=== PATIENT | female | born 1945 | race African-American/Black ===

== ENCOUNTER 2018-11-30 13:50 | Emergency (ER) | payer MEDICARE, MEDICAID ==
[~2018-11-30] VITALS: Ht 162.6 cm; Wt 99.8 kg
[~2018-11-30 13:50] MED LIST: ASPIR 8181 MG ORAL; LANTUS SOL100 UNIT/1 SUBQ; METFORMIN HCL1000 M1 ORAL; NOVOLIN R100 UNIT/1 SUBQ; SIMVASTATIN20 MG ORAL; blood pressure pill PO
[2018-11-30] MEDS ORDERED: BENAZEPRIL HCL40 MG ORAL (14:12)
[2018-11-30] MEDS ORDERED: MIRTAZAPINE15 M3 ORAL (14:12)
[2018-11-30] MEDS ORDERED: ATORVASTATIN CA40 MG ORAL (14:12)
[2018-11-30] MEDS ORDERED: OMEPRAZOLE20 M2 ORAL (14:12)
[2018-11-30] MEDS ORDERED: LEXAPRO20 MG ORAL (14:12)
[2018-11-30] MEDS ORDERED: AMLODIPINE BESY10 MG ORAL (14:12)
[2018-11-30] MEDS ORDERED: METOPROLOL TART25 MG ORAL (14:12)
[2018-11-30] MEDS ORDERED: TRAMADOL HCL50 MG ORAL (14:15)
[2018-11-30] MEDS ORDERED: FUROSEMIDE20 M1 ORAL (14:15)
[2018-11-30] MEDS ORDERED: GABAPENTIN300 MG ORAL (14:15)
[2018-11-30] MEDS ORDERED: NAPROXEN375 M2 ORAL (14:15)
[2018-11-30] MEDS ORDERED: MELOXICAM15 MG PO (14:15)
[2018-11-30] MEDS ORDERED: POTASSIUM CHLO10 MEQ ORAL (14:16)
--- NOTE | 2018-11-30 14:18 | NUR ---
ED Nurse Note: Pt came in from home c/o worsened right sided neck pain aching and joint pain; reports no recent injury; patient had this pain for years; MRI exam done. Pain 10/10 ugo. AOx4, VSS. Will cont to monitor.
--- NOTE | 2018-11-30 14:33 | Emergency Room Report ---
History of Present Illness General Chief Complaint: Neck Pain Source: Patient Present Illness HPI 73 YO female presents to the ED c/o 07/26 in severity right sided neck pain that radiates forward and across her chest x 3 days. pt. reports having issue of pain x multiple years and has had 2 MRI's performed which were both negative. pt. reports was seeing a pain management doctor but recently switched to [facility]. pt. reports hx of breast CA w. left mastectomy, DM, HTN and Neuropathy. denies paresthesias in the UE's. Pt. denies recent trauma or fall. Denies fevers, chills, SRINIVASAN or recent spinal procedure. Pt. denies night sweats or significant changes in weight. pt. reports being worked up for thyroid issues already. pt. is primarily here due to uncontrolled pain. Denies palpitations or upward radiation of her symptoms. Allergies: Coded Allergies: No Known Allergies (Unverified , 12/06/14) Patient History Past Medical History: see triage record Past Surgical History: none Pertinent Family History: none Now: No Reviewed Nursing Documentation: PMH: Agreed; PSxH: Agreed Nursing Documentation-PMH Past Medical History: No History, Except For Hx Cardiac Problems: Yes - arthritis Hx Hypertension: Yes Hx Pacemaker: No Hx Asthma: No Hx COPD: No Hx Diabetes: Yes Hx Cancer: No Hx Gastrointestinal Problems: Yes Hx Dialysis: No History Of Psychiatric Problem: Yes - depression Hx Neurological Problems: No Hx Cerebrovascular Accident: No Hx Seizures: No Review of Systems All Other Systems: negative except mentioned in HPI Physical Exam Vital Signs Date Time Temp Pulse Resp B/P (MAP) Pulse Ox O2 Delivery O2 Flow Rate FiO2 11/30/18 13:58 98.8 87 14 134/69 94 Room Air Sp02 EP Interpretation: reviewed, normal General Appearance: no apparent distress, alert, GCS 15, non-toxic Head: normocephalic, atraumatic Eyes: bilateral eye normal inspection, bilateral eye PERRL ENT: hearing grossly normal, normal voice Neck: full range of motion, tender lateral - right lateral, no swelling , erythema or LAD Respiratory: chest non-tender, lungs clear, normal breath sounds, speaking full sentences Cardiovascular #1: regular rate, rhythm, normal capillary refill Cardiovascular #2: 2+ radial (L), 2+ femoral (R) Musculoskeletal: back normal, gait/station normal, normal range of motion, tender - TTP to the right side of the neck and trapezius with some just below the collar bone. no bony ttp, no obvious deformity, no midline spinal pain. Neurologic: alert, oriented x3, responsive, motor strength/tone normal, sensory intact, speech normal, grossly normal Psychiatric: judgement/insight normal Skin: normal color, no rash, warm/dry, well hydrated Lymphatic: no adenopathy Medical Decision Making PA Attestation Dr. Clark is my supervising physician whom pt. management has been discussed with. Diagnostic Impression: Primary Impression: Chronic neck pain Additional Impressions: Neuropathy Hx of breast cancer ER Course 73 YO female presents to the ED c/o 07/26 in severity right sided neck pain that radiates forward and across her chest x 3 days. pt. reports having issue of pain x multiple years and has had 2 MRI's performed which were both negative. pt. reports was seeing a pain management doctor but recently switched to [facility]. pt. reports hx of breast CA w. left mastectomy, DM, HTN and Neuropathy. denies paresthesias in the UE's. Pt. denies recent trauma or fall. Denies fevers, chills, SRINIVASAN or recent spinal procedure. Pt. denies night sweats or significant changes in weight. pt. reports being worked up for thyroid issues already. pt. is primarily here due to uncontrolled pain. Denies palpitations or upward radiation of her symptoms. Ddx considered but are not limited to Fracture, dislocation, contusion, Sprain/ Strain/Spasm, Thyroid etiology, Epidural abscess, Neoplastic mets just to name a few. Vital signs: are WNL, pt. is afebrile H&PE are most consistent with nonacute Neck pain with poorly controlled pain management. no evidence to suggest infection at this time. ORDERS: - None Required at this time. ED INTERVENTIONS: - None Medication reconciliation performed with patient and I, patient is currently taking both diclofenac as well as naproxen. Patient is a diabetic she is on metformin as well as insulin and she is unaware of the high potential of renal damage symptoms associated with taking NSAIDs and being diabetic. Also discussed with patient that diclofenac and naproxen are essentially the same medication. Recommended patient to discontinue both medications. Patient was also given printed information regarding negative outcomes of NSAIDs use among antibiotics. -I do not identify an emergent condition at this time. With current presentation , pt. is stable for close outpatient follow up and conservative treatment. D/ w pt. to return promptly to ED with worsening or new symptoms.- Pt. verbalizes' understanding and agreement with proposed treatment plan. DISCHARGE: At this time pt. is stable for d/c to home. Will provide printed patient care instructions, and any necessary prescriptions. Care plan and follow up instructions have been discussed with the patient prior to discharge. Last Vital Signs Date Time Temp Pulse Resp B/P (MAP) Pulse Ox O2 Delivery O2 Flow Rate FiO2 11/30/18 13:58 98.8 87 14 134/69 94 Room Air Disposition: HOME, SELF-CARE Condition: Stable Scripts Gabapentin* (GABAPENTIN*) 400 Mg Capsule 400 MG ORAL THREE TIMES A DAY, #30 CAP 0 Refills Prov: Edel Hudson 11/30/18 Acetaminophen With Codeine (T#3) (TYLENOL #3 TAB*) Y Tab 1 TAB ORAL Q6HR PRN for For Pain, #28 TAB Prov: Edel Hudson 11/30/18 Patient Instructions: Neuropathic Pain, Pain Without a Known Cause Additional Instructions: Take medications as directed. Follow up with a NEUROLOGIST/ PAIN MANAGEMENT in 3-5 days, even if your symptoms have resolved. I Also recommend follow up for evaluation by oncology if your symptoms are persisting, as this too is a possible cause of your symptoms. Return sooner to ED if new symptoms occur, or current symptoms become worse. Do not drink alcohol, drive, or operate heavy machinery while taking Tylenol # 3 as this may cause drowsiness. - Please note that this Emergency Department Report was dictated using [employer] cutter technology software, occasionally this can lead to erroneous entry secondary to interpretation by the dictation equipment. Edel Hudson Nov 30, 2018 14:33
[2018-11-30] MEDS ORDERED: GABAPENTIN400 MG ORAL (14:35)
[2018-11-30] MEDS ORDERED: ACETAMINOPHEN-1 EAC1 ORAL (14:35)
[2018-11-30 14:50] VITALS: BP_SYST 128; BP_SYST 134; BP_DIAS 69; BP_DIAS 71
--- NOTE | 2018-11-30 14:50 | NUR ---
ER DISCHARGE NOTE: Patient is cleared to be discharged per ERMD, pt is aox4, on room air, with stable vital signs. pt was given dc and prescription instructions, pt was able to verbalize understanding, pt id band and iv site removed without complications. pt is able to ambulate with steady gait. pt took all belongings.
== END 2018-11-30 16:56 | disposition home or self-care (01) ==
LOC: EMR 14:30
DX: M54.2 Cervicalgia (principal); G62.9 Polyneuropathy, unspecified; Z85.3 Personal history of malignant neoplasm of breast; I10 Essential (primary) hypertension; E11.9 Type 2 diabetes mellitus without complications; F32.9 Major depressive disorder, single episode, unspecified
CPT/HCPCS: 99283